=== PATIENT | female | born 1990 | race Caucasian/White ===

== ENCOUNTER 2018-08-11 11:04 | Emergency (ER) | payer MEDICAID ==
[~2018-08-11] VITALS: Ht 170.2 cm; Wt 63.6 kg
[2018-08-11 11:16] VITALS: Ht 170.2 cm; Wt 63.6 kg
[2018-08-11] MEDS ORDERED: LATUDA80 MG PO (11:18)
[2018-08-11] MEDS ORDERED: ZOLOFT100 MG PO (11:18)
[2018-08-11] MEDS ORDERED: METOPROLOL TART50 MG PO (11:19)
[2018-08-11] MEDS ORDERED: AMITRIPTYLINE H50 MG PO (11:19)
[2018-08-11] MEDS ORDERED: MINIPRESS 5 MG C5 MG PO (11:21)
[2018-08-11 12:01] LABS: ALBUMIN 4.1 g/dL (3.4-5.0); ALKALINE PHOSPHATASE 65 U/L (46-116); ALT (SGPT) 38 U/L (10-68); BILIRUBIN - TOTAL 0.19 mg/dL (0.2-1.3); CALC OSMOLALITY 274 mosm/kg (275-300); CALCIUM 8.8 mg/dL (8.5-10.1); CARBON DIOXIDE 26.8 mmol/L (21.0-32.0); CHLORIDE - SERUM 103 mmol/L (98-107); CREATININE - SERUM 0.8 mg/dL (0.6-1.3); GLUCOSE 105 mg/dL (74-106); POTASSIUM - SERUM 3.7 mmol/L (3.5-5.1); PROTEIN - SERUM 7.9 g/dL (6.4-8.2); SODIUM 137 mmol/L (136-145); UREA NITROGEN 14 mg/dL (7-18); eGFR NON AFRICAN AMERICAN 90 mL/min (90-120)
[2018-08-11 12:02] LABS: BASOPHILS 0.1 % (0-2); EOSINOPHILS 0.6 % (0-7); HEMATOCRIT 40.1 % (36.0-48.0); IMMATURE GRANULOCYTES 0.2 % (0-5); MCH 29.2 pg (26.0-34.0); MCHC 32.4 g/dL (31.0-37.0); MCV 90.1 fL (80.0-100.0); MEAN PLATELET VOLUME 10.6 fL (7.4-10.4); MONOCYTES 4.5 % (2-11); NEUTROPHILS 75.6 % (40-80); PLATELET COUNT 239 10x3/uL (130-400); RBC 4.45 10x6/uL (4.00-5.40); RDW 13.6 % (11.5-14.5); WBC 8.8 10x3/uL (4.8-10.8)
[2018-08-11 12:05] LABS: AMYLASE - SERUM 50 U/L (25-115); LIPASE 179 U/L (73-393); TROPONIN-I < 0.017 ng/mL (0.000-0.060)
[2018-08-11 12:51] LABS: APPEARANCE HAZY (CLEAR); BACTERIA MANY /hpf (NONE SEEN); BILIRUBIN NEGATIVE (NEGATIVE); COLOR YELLOW (YELLOW); EPITHELIAL CELLS 0-5 /hpf (0-5); GLUCOSE NEGATIVE (NEGATIVE); KETONE NEGATIVE (NEGATIVE); NITRITE NEGATIVE (NEGATIVE); PROTEIN NEGATIVE (NEGATIVE); SPECIFIC GRAVITY 1.015 (1.005-1.020); UROBILINOGEN NORMAL (NORMAL); WHITE CELLS - URINE 0-5 /hpf (0-5)
[2018-08-11 13:13] LABS: HCG URINE NEGATIVE (NEGATIVE)
[2018-08-11] MEDS ORDERED: ZOFRAN ODT4 MG/UDTAB PO (14:52)
[2018-08-11] MEDS ORDERED: DULCOLAX STOOL100 MG PO (14:52)
[2018-08-11 15:32] VITALS: BP 105/70
== END 2018-08-11 15:30 | disposition home or self-care (01) ==
LOC: D.ER 11:04
PROVIDERS: Family Medicine
DX: K59.00 Constipation, unspecified (principal)